=== PATIENT | female | born 1985 ===

== ENCOUNTER 2018-07-31 05:50 | Day surgery (SDC) | payer OTHER ==
[~2018-07-31 05:50] MED LIST: TYLENOL-CODEINE1 TAB PO
[2018-07-31] MEDS ORDERED: tylenol #3 PO (11:42)
[2018-07-31] MEDS ORDERED: MONODOX100 MG PO (11:44)
== END 2018-07-31 15:45 | disposition home or self-care (01) ==
LOC: CIR.AMB 05:50
DX: D25.0 Submucous leiomyoma of uterus (principal); N84.0 Polyp of corpus uteri